=== PATIENT | male | born 1985 | race Caucasian/White ===

== ENCOUNTER → 2022-12-16 | Outpatient (CLI) | payer BC, SELFPAY ==
--- NOTE | 2022-12-16 11:56 | NEURO ---
NCS and/or EMG Patient Report Ordering Doctor: Gaviota Whittington DATE OF SERVICE: 12/16/22 Brian presents for electrodiagnostic testing of the upper limbs. He reports numbness and tingling in both hands for the past year. Electrodiagnostic findings: Right median motor nerve demonstrates prolonged distal latency with normal amplitude and reduced conduction velocity. Left median motor nerve demonstrates prolonged distal latency with normal amplitude and reduced conduction velocity. Normal ulnar motor response is noted bilaterally. Prolonged median F-wave bilaterally. Prolonged median sensory latency at the wrist bilaterally. Prolonged right median palmar latency. Needle EMG testing demonstrates no evidence of denervation with normal motor unit action potentials. Electrodiagnostic impression: This is an abnormal study in the upper limbs 1. Electrodiagnostic findings suggestive of bilateral median mononeuropathy. This is consistent with a moderate right carpal tunnel syndrome and a mild left carpal tunnel syndrome. 2. No electrodiagnostic evidence is noted for cervical radiculopathy. Multi Select Codes Neurology Neurology Interp Codes: 82950-61 Musc test done w/n test comp (interp) (2) and 69374-58 Nrv cndj test 13/> studies (interp)
== END | disposition home or self-care (01) ==
LOC: PSN 06:30
PROVIDERS: PCP Nurse Practitioner Primary Care; Visit Provider Physician Assistant Surgical
DX: R20.2 Paresthesia of skin (principal); M25.541 Pain in joints of right hand
CPT/HCPCS: 95913